=== PATIENT | male | born 1985 | race Caucasian/White ===

== ENCOUNTER 2017-08-28 18:25 | Inpatient (IN) | payer BC, OTHER ==
[2017-08-28] MEDS ORDERED: NS 0.9% 1000 ML* 2,000 ML IV ONE (19:55)
[2017-08-28] MEDS ORDERED: LORazepam INJ* 2 MG/ML 1 ML VIAL IV PUSH ONE (19:56)
--- NOTE | 2017-08-28 20:19 | RAD ---
INDICATION: Weakness. COMPARISON: There are no prior studies available for comparison. TECHNIQUE: A portable view of the chest was obtained. FINDINGS: Cardiac and mediastinal contours appear to be within normal limits. The lungs are hyperinflated and clear. No pleural effusion is seen. IMPRESSION: NO EVIDENCE FOR ACUTE DISEASE.
[2017-08-28 20:26] LABS: EGFR Non-African American 11.8 (>60)
[2017-08-28 21:34] LABS: ABS Basophils 0.1 10^3/ul (0-0.2); ABS Eosinophils 0.2 10^3/ul (0-0.6); ABS Lymphocytes 3.5 10^3/ul (1.0-4.8); ABS Monocytes 1.5 10^3/ul (0-0.8); ABS Neutrophils 11.9 10^3/ul (1.5-7.7); ABS Nucleated RBC 0 10^3/ul; Eosinophil % 1.4 % (0-6); Hematocrit 53 % (42-52); Hemoglobin 18.7 g/dl (14.0-18.0); Lymphocyte % 20.2 % (25-47); Mean Corpuscular HGB Conc 35 g/dl (31-36); Mean Corpuscular Hemoglobin 33 pg (27-31); Mean Corpuscular Volume 92 fL (80-94); Mean Platelet Volume 10.6 um3 (7.4-10.4); Nucleated Red Blood Cells % 0.1; Platelet Count 298 10^3/ul (150-450); Red Blood Count 5.75 10^6/ul (4.0-5.4); Red Cell Distribution Width 13 % (10.5-15); White Blood Count 17.3 10^3/ul (3.5-10.8)
--- NOTE | 2017-08-28 22:10 | RAD ---
INDICATION: Acute renal failure. COMPARISON: There are no prior studies available for comparison. TECHNIQUE: Multiple real-time images of the kidneys were obtained. FINDINGS: The kidneys are normal in size shape and echogenicity. The right kidney measured 9.4 x 6.0 x 5.4 cm and the left kidney measured 9.7 x 6.1 x 5.9 cm. No significant focal abnormality or hydronephrosis is seen. IMPRESSION: NEGATIVE EXAM.
[2017-08-28] MEDS ORDERED: Lidocaine 4% GEL* 10 GM TUBE TOPICAL ONE (23:13)
[2017-08-28] MEDS ORDERED: Al Hydrox/Mg Hydrox/Simet LIQ* 30 ML UDC PO PRN (23:15)
[2017-08-28] MEDS ORDERED: Senna TAB PO PRN (23:15)
[2017-08-28] MEDS ORDERED: Ondansetron INJ* 2 MG/ML VIAL IV PRN (23:15)
[2017-08-28] MEDS ORDERED: Docusate CAP* 100 MG PO PRN (23:15)
[2017-08-28] MEDS ORDERED: Omeprazole CAP* 20 MG PO PRN (23:18)
[2017-08-28] MEDS ORDERED: Lidocaine 2% JELLY* 6 ML JELLY TOPICAL ONE (23:32)
[2017-08-28] MEDS ORDERED: Mouth Piece, Nicotine* 1 EACH CARTRIDGE INH PRN ×2 (23:38)
[2017-08-28] MEDS ORDERED: Nicotine Inhaler* 10 MG AMP INH PRN (23:38)
--- NOTE | 2017-08-28 23:43 | ED ---
Mike Edmond Thomas, scribed for Mason Mcclure MD on 08/28/17 at 1938 . Dizziness - HPI Summary HPI Summary: The patient is a 31 year old male who is a poor historian. He comes in today complaining of dizziness that began today at 11:00. The dizziness is worsened by standing and sitting up. The patient reports that he has been falling due to the dizziness. The patient also complains of malaise, blurry vision, nausea, vomiting, tinnitus, chills, neck pain, bilateral arm numbness, and bilateral leg numbness. He complains of chronic back pain for the last 20 years that has worsened today. He is on Adderall. He is accompanied by his mother. - History Of Current Complaint Chief Complaint: EDDizziness Stated Complaint: HANDS AND FT NUMBNESS/ABD PAIN Time Seen by Provider: 08/28/17 19:35 Hx Obtained From: Patient Onset/Duration: Still Present Timing: Constant Severity Currently: Moderate Aggravating Factor(s): Other - Standing, sitting up Alleviating Factor(s): Nothing Associated Signs And Symptoms: Positive: Nausea, Vomiting, Tinnitus, Visual Changes - blurry vision, Chills - Allergies/Home Medications Allergies/Adverse Reactions: Allergies Allergy/AdvReac Type Severity Reaction Status Date / Time No Known Allergies Allergy Verified 02/18/16 13:38 Home Medications: Home Medications Amphetamine MIXED SALTS TAB* [Adderall TAB*] 5 mg PO DAILY 08/28/17 [History Confirmed 08/28/17] Aspirin TAB* [Aspirin 325 MG TAB*] 650 mg PO Q6H PRN 08/28/17 [History Confirmed 08/28/17] Omeprazole CAP* [Prilosec CAP* 20 MG] 20 mg PO DAILY PRN 08/28/17 [History Confirmed 08/28/17] PMH/Surg Hx/FS Hx/Imm Hx Endocrine/Hematology History: Denies: Hx Diabetes Cardiovascular History: Denies: Hx Hypertension, Hx Pacemaker/ICD Respiratory History: Denies: Hx Asthma History: Denies: Hx Renal Disease Musculoskeletal History: Denies: Hx Rheumatoid Arthritis, Hx Osteoporosis Sensory History: Denies: Hx Hearing Aid Psychiatric History: Reports: Hx Attention Deficit Hyperactivity Disorder Denies: Hx Panic Disorder Infectious Disease History: No Infectious Disease History: Denies: History Other Infectious Disease, Traveled Outside the [place] in Last 30 Days - Family History Known Family History: Positive: Hypertension - Social History Alcohol Use: None Substance Use Type: Reports: None Smoking Status (MU): Never Smoked Tobacco Amount Used/How Often: 5 CIGS A DAY Review of Systems Positive: Chills, Other - Malaise. Negative: Fever Positive: Blurred Vision Positive: Other - Neck pain Neurological: Other - Dizziness Positive: Numbness - bilateral leg, bilateral arm All Other Systems Reviewed And Are Negative: Yes Physical Exam - Summary Physical Exam Summary: VITAL SIGNS: Reviewed. GENERAL: Patient is a well-developed and nourished male who is lying comfortable in the stretcher. He is a poor historian. Patient is not in any acute respiratory distress. HEAD AND FACE: No signs of trauma. No ecchymosis, hematomas or skull depressions. No sinus tenderness. EYES: PERRLA, EOMI x 2, No injected conjunctiva, no nystagmus. EARS: Hearing grossly intact. Ear canals and tympanic membranes are within normal limits. MOUTH: Oropharynx within normal limits. NECK: Supple, trachea is midline, no adenopathy, no JVD, no carotid bruit, no c- spine tenderness, neck with full ROM. CHEST: Symmetric, no tenderness at palpation LUNGS: Clear to auscultation bilaterally. No wheezing or crackles. CVS: Tachycardia, regular rhythm, S1 and S2 present, no murmurs or gallops appreciated. ABDOMEN: Soft, non-tender. No signs of distention. No rebound no guarding, and no masses palpated. Bowel sounds are normal. BACK: Straight leg test is negative bilateral. There is no lumbosacral tenderness. EXTREMITIES: FROM in all major joints, no edema, no cyanosis or clubbing. NEURO: Alert and oriented x 3. No acute neurological deficits. Neurological exam is intact. Speech is normal and follows commands. SKIN: Dry and warm Triage Information Reviewed: Yes Vital Signs On Initial Exam: Initial Vitals Temp Pulse Resp BP Pulse Ox 96.6 F 131 20 144/77 95 08/28/17 18:27 08/28/17 18:27 08/28/17 18:27 08/28/17 18:27 08/28/17 18:27 Vital Signs Reviewed: Yes Diagnostics - Vital Signs Vital Signs Temp Pulse Resp BP Pulse Ox 08/28/17 18:27 96.6 F 131 20 144/77 95 - Laboratory Result Diagrams: 08/28/17 19:35 08/28/17 19:35 Lab Statement: Any lab studies that have been ordered have been reviewed, and results considered in the medical decision making process. - Radiology CXR Xray Interpretation: No Acute Changes - IMPRESSION: NO EVIDENCE FOR ACUTE DISEASE. Dr. Mcclure has reviewed this report. Radiology Interpretation Completed By: Radiologist - EKG 18:30 Cardiac Rate: Tachycardia EKG Rhythm: Sinus Tachycardia - at 127 BPM - Additional Comments Diagnostic Additional Comments: US RENAL COMPLETE Interpreted by radiologist. IMPRESSION: NEGATIVE EXAM. Dr. Mcclure has reviewed this report. Re-Evaluation - Re-Evaluation First Eval Re-Evaluation Time: 22:40 Comment: Results discussed. Patient will be admitted to Dr. Mena. Dizzy Course/Dx - Course Assessment/Plan: The patient is a 31 year old male who is a poor historian. He comes in today complaining of dizziness, falls, malaise, blurry vision, nausea, vomiting, tinnitus, chills, neck pain, bilateral arm numbness, chronic back pain , and bilateral leg numbness. In the ED course the patient was given IV fluids and Ativan. Bloodwork, urinalysis, and EKG were obtained. CXR is negative for acute disease. Renal ultrasound shows negative exam. I consulted with Dr. Gomez, nephrology, who made treatment recommendations. The patient will be admitted to Dr. Mena. - Diagnoses Provider Diagnoses: Acute renal failure - Provider Notifications Discussed Care Of Patient With: Osiel Gomez Time Discussed With Above Provider: 22:15 Instructed by Provider To: Other - Dr. Gomez, nephrology, recommends a bolus of 2000 cc of saline and 150 cc of saline per hour after that. He recommends no diuretics at this time. I spoke with Dr. Mena, hospitalist, at 22:40, and she will admit the patient. Discharge - Sign-Out/Discharge Documenting (check all that apply): Discharge - Patient is admitted to [facility] [place]. Mena - Discharge Plan Condition: Fair Disposition: ADMITTED TO [facility] The documentation as recorded by the Mike flannery Thomas accurately reflects the service I personally performed and the decisions made by me, Mason Mcclure MD.
[2017-08-28] MEDS: NS 0.9% 1000 ML* 1,000 ML IV SCH (23:52)
[2017-08-29] MEDS: Zolpidem TAB* 5 MG PO PRN (01:09)
--- NOTE | 2017-08-29 01:12 | HP ---
CC: Dr. Spivey in [place], [place] * HISTORY AND PHYSICAL: DATE OF ADMISSION: 08/28/17 TIME OF EVALUATION: 2300. PRIMARY CARE PHYSICIAN: Dr. Spivey in [place], [place]. CHIEF COMPLAINT: Dizziness, falls, and loss of consciousness. HISTORY OF PRESENT ILLNESS: This is a 31-year-old male who was recently diagnosed with hypertension and hyperlipidemia, who presented to the emergency room today with his mother for acute onset of feeling unwell. The patient states he was fine yesterday and today he was having upper back pain, worse in the upper region and lower. He has pain in his arms and his shoulders. He was feeling very dizzy and lightheaded. He states every time he tried to stand up he had fall down and he would have loss of consciousness. He was having episodes of nausea or vomiting. He did have an episode last evening and today. He has had significant amount of heartburns, feels like he cannot breath, and chest pain. He denies having any recent illness or viral illness or flu-like symptoms. In his opinion despite having the vomiting episode, he states he was fine yesterday with normal urine output, but states he has not urinated since yesterday and at that time, his urine output was fine. He states he has had normal bowel movements. He has had diffuse abdominal discomfort. He has numbness and tingling off and on in his hands and his legs, states it is worse when he sits up. He states he recently was seen by his primary care physician, Dr. Spivey and he did blood work, he told him he had high cholesterol and high blood pressure and they started him on hydrochlorothiazide about a month ago. He states he forgets to take it and has not been taking very often over the past month. He denies using very many NSAIDs at all. He states he usually sticks with Tylenol. Otherwise, review of systems is negative. In the emergency room, the patient had labs and imaging. He was given 2 L of normal saline and was referred to the hospitalist service for further evaluation. PAST MEDICAL HISTORY: 1. ADHD. 2. Hypertension. 3. Hyperlipidemia. MEDICATIONS: 1. Adderall 5 mg p.o. daily. 2. Omeprazole 20 mg daily. 3. He is maintained on hydrochlorothiazide, but the patient has not been taking very often this past month. ALLERGIES: No known drug allergies. FAMILY HISTORY: Maternal grandfather from renal failure that he does have a history of renal impairment in the family and hypertension. His mother has hypertension. His father is healthy. SOCIAL HISTORY: The patient lives alone. He is currently unemployed. 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 He smokes about 5 cigarettes a day, rare alcohol use, and occasional marijuana use. His healthcare proxy is his mother, Jazmín Tariq. Code status is full code. REVIEW OF SYSTEMS: As mentioned in the HPI, otherwise negative. He denies any changes in his weight. PHYSICAL EXAMINATION GENERAL: Some discomfort due to the Sullivan placement. VITAL SIGNS: Temp 98.6, pulse rate 106, respiratory rate 20, oxygen saturation 100% on room air, and blood pressure 87/44. HEENT: Head: Normocephalic. Pupils equal and reactive, anicteric. Oropharynx : Mucous membranes are moist. No erythema or exudate. NECK: Supple. No lymphadenopathy. RESPIRATORY: Diminished breath sounds. No wheezing, rhonchi, or rales. CARDIAC: Tachycardia. Soft systolic murmur heard throughout. ABDOMEN: Positive bowel sounds, soft, some mild tenderness in the suprapubic region related to the Sullivan catheter. No rebound or guarding. EXTREMITIES: No clubbing, cyanosis, or edema. +2 DP. NEUROLOGIC: Alert and oriented x3. No gross focal neurological deficits. No sensation deficits. Negative pronator drift. LABORATORY DATA: White count 17.3, hemoglobin 18.7, hematocrit 53, platelets 298. Sodium 137, potassium 3.5, chloride 85, bicarb 28, anion gap of 24, BUN 35 , creatinine 5.72, glucose 126, lactic acid 2.3, calcium 11.2. Total bili 0.8, AST 24, ALT 21, total CK 363. CRP is 26. TSH is 1.76. Toxicology, less salicylates and alcohol negative. RADIOGRAPHIC DATA: Chest x-ray, no evidence for acute disease. Renal ultrasound, negative exam. EKG shows sinus tachycardia with minimal ST elevation in the inferior leads. ASSESSMENT AND PLAN: This is a 31-year-old male with a past medical history of hypertension, hyperlipidemia, and attention deficit hyperactivity disorder, who presents to the emergency room with a diffuse constellation of symptoms, found to be in acute kidney injury. 1. Acute kidney injury. Assessment: It is unclear the etiology behind his acute kidney injury per patient who appears to be a poor historian. This was a rather acute onset. He was started on hydrochlorothiazide a month ago, but it does not seem that he was taking it very often. He did have blood work recently. We will obtain those blood work to compare to see if he has underlying chronic kidney disease. He is currently anuric. He received 2 L and a Sullivan has been placed and no urine output thus far. Dr. Gomez was called, he recommended 2 L and continue normal saline to followup in the morning. Plan: We will continue 150 cc an hour, renally dose his medications. If he does urinate, we will order a UA and FENa. We will check a mag, phos, and coags, and troponin as well and followup on his CK. 2. Chronic medical problems. Attention deficit hyperactivity disorder. Continue his Adderall. 3. Gastroesophageal reflux disease. Continue omeprazole. 4. Hypertension. The patient is currently hypotensive at this time. 5. Hyperlipidemia. We will check a lipid panel in the morning. 6. FEN. Place the patient on a renal diet. 7. DVT prophylaxis: The patient scores low risk. We will place him on heparin subcu t.i.d. as I suspect he is not going to be very mobile with a Sullivan catheter in place due to the discomfort. We will order him some lidocaine gel to the Sullivan catheter area. 8. Code status: Full code. PATIENT TIME: Greater than 60 minutes spent doing the history and physical, more than half the time was spent in direct patient contact. [id number]/[facility] #: [id number] ASHLEY
[2017-08-29] MEDS ORDERED: Aspirin EC TAB* 81 MG TAB.EC PO ONE (01:41)
[2017-08-29] MEDS ORDERED: Heparin DRIP 25,000 UNITS(*) 25,000 UNITS/500 ML BAG IV SCH (01:45)
--- NOTE | 2017-08-29 01:48 | PN ---
Progress Note - Progress Note Date of Service: 08/29/17 Note: Paged for positive bump in troponin. No Chest pain. Will repeat EKG. Concern for PE in setting of tachycardia and hypotension. Will start heparin empirically as his renal function will not allow for CTA of chest. Will order V /Q scan, echo and doppler of lower ext for morning.
[2017-08-29] MEDS ORDERED: Heparin VIAL(*) 5000 UNITS/ML VIAL (FIVE THOUSAND) IV SCH (02:00)
[2017-08-29 02:23] LABS: Hematocrit 42 % (42-52); Hemoglobin 14.3 g/dl (14.0-18.0); Mean Corpuscular HGB Conc 34 g/dl (31-36); Mean Corpuscular Hemoglobin 32 pg (27-31); Mean Corpuscular Volume 93 fL (80-94); Mean Platelet Volume 9.8 um3 (7.4-10.4); Platelet Count 214 10^3/ul (150-450); Red Blood Count 4.51 10^6/ul (4.0-5.4); Red Cell Distribution Width 13 % (10.5-15); White Blood Count 18.2 10^3/ul (3.5-10.8)
[2017-08-29 02:25] LABS: ABS Basophils 0.2 10^3/ul (0-0.2); ABS Eosinophils 0.2 10^3/ul (0-0.6); ABS Lymphocytes 3.3 10^3/ul (1.0-4.8); ABS Monocytes 1.6 10^3/ul (0-0.8); ABS Neutrophils 12.9 10^3/ul (1.5-7.7); ABS Nucleated RBC 0 10^3/ul; Eosinophil % 1.2 % (0-6); Nucleated Red Blood Cells % 0
[2017-08-29 02:40] LABS: EGFR Non-African American 10.6 (>60)
[2017-08-29] MEDS ORDERED: NS 0.9% 1000 ML* 1,000 ML IV ONE (04:30)
[2017-08-29] MEDS ORDERED: Vancomycin(*) 1,000 MG in NS 0.9% 250 ML* 250 ML IVPB ONE (06:04)
[2017-08-29] MEDS ORDERED: Cefepime 1 GM in Dextrose(*) 1 GM/50 ML BAG IV STA (06:21)
--- NOTE | 2017-08-29 06:27 | PN ---
Progress Note - Progress Note Date of Service: 08/29/17 Note: Paged for systolic BP in 60's. Patient transfered to ICU and given 3 L of NS. Remains anuric. On encounter - patient denies any complaints. No back pain, CP or SOB. Denies abdominal pain. States he never injected drugs only snorted them or smoked them in 2010. Has been clean since. Patient on arrival to ICU spiked to 101. Blood cultures obtained, Vanco x 1 and Cefepime started. Flu swab also ordered. Spoke with Dr. Rivas who recommend neosynephrine to keep his SBP's in 90-100's. Awaiting on morning labs including CK.
[2017-08-29 07:12] LABS: ABS Basophils 0.1 10^3/ul (0-0.2); ABS Eosinophils 0.3 10^3/ul (0-0.6); ABS Monocytes 1.5 10^3/ul (0-0.8); ABS Neutrophils 11.4 10^3/ul (1.5-7.7); ABS Nucleated RBC 0 10^3/ul; Eosinophil % 2.1 % (0-6); Hematocrit 36 % (42-52); Hemoglobin 12.4 g/dl (14.0-18.0); Lymphocyte % 18.3 % (25-47); Mean Corpuscular HGB Conc 34 g/dl (31-36); Mean Corpuscular Hemoglobin 32 pg (27-31); Mean Corpuscular Volume 93 fL (80-94); Mean Platelet Volume 10.6 um3 (7.4-10.4); Nucleated Red Blood Cells % 0; Platelet Count 183 10^3/ul (150-450); Red Blood Count 3.92 10^6/ul (4.0-5.4); Red Cell Distribution Width 13 % (10.5-15); White Blood Count 16.2 10^3/ul (3.5-10.8)
--- NOTE | 2017-08-29 07:25 | PN ---
Hospitalist Progress Note Date of Service: 08/29/17 HOSPITALIST ADDENDUM Called by RN for troponin 0.47. Patient remains CP free. With his clinical picture of severe sepsis of unclear source, will check serial troponins until peak and echocardiogram for possible myocarditis.
--- NOTE | 2017-08-29 07:51 | RAD ---
HISTORY: Syncope COMPARISONS: None TECHNIQUE: Multiple contiguous axial CT scans were obtained of the head without intravenous contrast. FINDINGS: HEMORRHAGE/INFARCT: There is no hemorrhage or acute infarct. MASSES/SHIFT: There is no mass or shift. EXTRA-AXIAL SPACES: There are no extra-axial fluid collections. SULCI AND VENTRICLES: The sulci and ventricles are normal in size and position for the patient's stated age. CEREBRUM: There are no focal parenchymal abnormalities. BRAINSTEM: There are no focal parenchymal abnormalities. CEREBELLUM: There are no focal parenchymal abnormalities. VESSELS: The vessels are grossly normal. PARANASAL SINUSES: The paranasal sinuses are clear. ORBITS: The orbits are unremarkable. BONES AND SOFT TISSUE: No bone or soft tissue abnormalities are noted. OTHER: None IMPRESSION: NO ACUTE INTRACRANIAL PATHOLOGY.
[2017-08-29] MEDS: Aspirin EC TAB* 81 MG TAB.EC PO SCH (08:28)
[2017-08-29] MEDS: Amphetamine MIXED SALT TAB* 10 MG TAB PO SCH (08:46)
[2017-08-29] MEDS: Phenylephrine INJ* 50 MG in NS 0.9% 250 ML* 245 ML IV SCH (09:00)
[2017-08-29] MEDS: NS 0.9% 1000 ML* 1,000 ML IV SCH ×2 (09:33→16:15)
[2017-08-29] MEDS ORDERED: Vancomycin per Pharmacy* NOTE FOLLOW UP SCH (10:00)
[2017-08-29 10:30] LABS: Urine Appearance Cloudy; Urine Blood 3+ (Negative); Urine Color Yellow; Urine Ketones Trace (Negative); Urine Protein 2+(100 mg/dL) (Negative); Urine Urobilinogen Negative (Negative)
--- NOTE | 2017-08-29 10:31 | CONSULT ---
Consult Consult: Consultation Note Critical Care Requesting Physician: Dr Estela Mena Reason for consult: hypotension Limitations in history/physical: none Date of consult: 08/29/2017 HPI: 31y M with some hyperactivity disorder (ADHD?), Hypertension; comes to ER for dizziness, falls secondary to dizziness. Also associated blurry vision, malaise, nausea, vomiting, chills+, bilateral arm numbness and leg numbness. Chronic back pain for 20yrs. States no fever/chills. Vomiting x2-3x yesterday. No sick contacts. No abd pain/diarrhea. States he doesnt take HCTZ frequently, last time was last week once. Comes to ER 08/28, was tachycardic 130s, temp 96.6, sat 95% RA, wbc 17, in AYO Cr 5.7. Started on IVF. Overnight was hypotensive to 70s, given fluid bolus without much response, upgraded to ICU. Here started on enrrique this morning for low MAP and low Diastolic BP. Sullivan in place, not much urine overnight. On NS 150cc/hour. Started on IV heparin overnight for rising troponins. He denies CP/ sob. This morning in ICU spiked temp 101.1 ED/floor Course: as above ROS: negative except for pertinent positives mentioned above. PMHx: ADHD, Hypertension PSHx: none Family History: Renal failure in maternal grandfather. Hypertension in mother. 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 Allergies: NKDA Home Medications: Amphetamine MIXED SALTS TAB* [Adderall TAB*] 5 mg PO DAILY 08/28/17 [History Confirmed 08/28/17] Aspirin TAB* [Aspirin 325 MG TAB*] 650 mg PO Q6H PRN 08/28/17 [History Confirmed 08/28/17] Omeprazole CAP* [Prilosec CAP* 20 MG] 20 mg PO DAILY PRN 08/28/17 [History Confirmed 08/28/17] Tele: NSR Vitals: tmax 101 Vital Signs Temp 98.8 F 08/29/17 07:54 Pulse 88 08/29/17 09:45 Resp 12 08/29/17 09:45 BP 119/37 08/29/17 09:45 Pulse Ox 95 08/29/17 09:45 Intake & Output 08/28/17 08/29/17 08/29/17 18:59 06:59 18:59 Intake Total 1999 Output Total 0 260 Balance 1999 - Weight 165 lb 154 lb 3.2 oz Intake: IV Fluids 1999 Output: Sullivan 0 260 O2/Vent: RA Infusions: NS 150cc/hour, Heparin IV, Enrrique 10mcg/min Current Medications: Acetaminophen (Tylenol Tab*) 650 mg PO Q4H PRN PRN Reason: FEVER/PAIN Al Hydrox/Mg Hydrox/Simethicone (Maalox Plus*) 30 ml PO Q6H PRN PRN Reason: INDIGESTION Last Admin: 08/29/17 01:05 Dose: 30 ml Amphetamine/Dextroamphetamine (Adderall Tab*) 5 mg PO DAILY [facility] Last Admin: 08/29/17 08:46 Dose: Not Given Aspirin (Aspirin Ec Tab*) 81 mg PO DAILY [facility] Last Admin: 08/29/17 08:28 Dose: 81 mg Device (Nicotine Mouth Piece*) 1 each INH .USE WITH NICOTROL PRN PRN Reason: CRAVING Docusate Sodium (Colace Cap*) 100 mg PO BID PRN PRN Reason: CONSTIPATION Heparin Sodium (Porcine) (Heparin Vial(*)) 0 units IV .PER PROTOCOL [facility] Last Admin: 08/29/17 03:37 Dose: 5,650 units Sodium Chloride (Ns 0.9% 1000 Ml*) 1,000 mls @ 150 mls/hr IV PER RATE [facility] Last Admin: 08/29/17 09:33 Dose: 150 mls/hr Heparin Sodium/Dextrose (Heparin Drip 25,000 Units(*)) 25,000 units in 500 mls @ 0 mls/hr IV PER RATE [facility]; Per Protocol PRN Reason: Protocol Last Admin: 08/29/17 03:34 Dose: 27 mls/hr Cefepime HCl 1 gm/ Dextrose 50 mls @ 100 mls/hr IVPB Q24H MYRNA Phenylephrine HCl 50 mg/ (Sodium Chloride) 250 mls @ 15 mls/hr IV Q16H MYRNA PRN Reason: 50 MCG/MIN Last Admin: 08/29/17 09:00 Dose: 3 mls/hr Nicotine (Nicotine Inhaler*) 10 mg INH Q2H PRN PRN Reason: CRAVING Omeprazole (Prilosec Cap*) 20 mg PO DAILY PRN PRN Reason: NAUSEA/VOMITING Last Admin: 08/29/17 01:05 Dose: 20 mg Ondansetron HCl (Zofran Inj*) 4 mg IV Q4H PRN PRN Reason: NAUSEA/VOMITING Pharmacy Consult (Vancomycin Per Pharmacy*) 1 note FOLLOW UP .VANC PER PHARMACY MYRNA Senna (Senokot Tab*) 1 tab PO BID PRN PRN Reason: CONSTIPATION Zolpidem Tartrate (Ambien Tab*) 5 mg PO BEDTIME PRN PRN Reason: INSOMNIA Last Admin: 08/29/17 01:09 Dose: 5 mg Physical Exam: General: awake, alert, no distress, no diaphoresis Head: normocephalic, atraumatic HEENT: no pallor, no icterus, dry mucous membranes Neck: soft, supple, no jvd, no stridor CVS: normal rate, regular, no murmur Resp: bilateral air entry, no rhales, no wheeze, no rhonchi, no acc muscle use Abdomen: soft, nontender, nondistended, bowel sounds present Ext: pulses+, warm, no edema Skin: intact, no breakdown, no dryness Neuro: awake, alert, orientedx3, moving all extremities, no gross focal deficit Labs: Laboratory Results - last 24 hr 08/28/17 08/28/17 08/28/17 19:35 19:35 19:35 WBC 17.3 H RBC 5.75 H Hgb 18.7 H Hct 53 H MCV 92 MCH 33 H MCHC 35 RDW 13 Plt Count 298 MPV 10.6 H Neut % (Auto) 68.9 Lymph % (Auto) 20.2 L Dewey % (Auto) 8.8 H Eos % (Auto) 1.4 Baso % (Auto) 0.7 Absolute Neuts (auto) 11.9 H Absolute Lymphs (auto) 3.5 Absolute Monos (auto) 1.5 H Absolute Eos (auto) 0.2 Absolute Basos (auto) 0.1 Absolute Nucleated RBC 0 Nucleated RBC % 0.1 INR (Anticoag Therapy) APTT D-Dimer, Quantitative Sodium 137 L Potassium 3.5 Chloride 85 L Carbon Dioxide 28 Anion Gap 24 H BUN 35 H Creatinine 5.72 H Est GFR ( Amer) 15.2 Est GFR (Non-Af Amer) 11.8 BUN/Creatinine Ratio 6.1 L Glucose 126 H Lactic Acid 2.3 H* Calcium 11.2 H Phosphorus 5.0 Magnesium 2.6 Total Bilirubin 0.80 AST 24 ALT 21 Alkaline Phosphatase 66 Total Creatine Kinase 363 H Troponin I 0.04 H* C-Reactive Protein 26.78 H Total Protein 9.4 H Albumin 5.7 H Globulin 3.7 Albumin/Globulin Ratio 1.5 Triglycerides Cholesterol LDL Cholesterol HDL Cholesterol TSH 1.76 Urine Color Urine Appearance Urine pH Ur Specific Flaxton Urine Protein Urine Ketones Urine Blood Urine Nitrate Urine Bilirubin Urine Urobilinogen Ur Leukocyte Esterase Urine WBC (Auto) Urine RBC (Auto) Urine Bacteria Hyaline Casts Urine Glucose Salicylates < 2.50 Serum Alcohol < 10 Influenza A (Rapid) Influenza B (Rapid) 08/29/17 08/29/17 08/29/17 00:00 00:00 02:15 WBC 18.2 H RBC 4.51 Hgb 14.3 Hct 42 MCV 93 MCH 32 H MCHC 34 RDW 13 Plt Count 214 MPV 9.8 Neut % (Auto) 71.2 Lymph % (Auto) 18.0 L Dewey % (Auto) 8.6 H Eos % (Auto) 1.2 Baso % (Auto) 1.0 Absolute Neuts (auto) 12.9 H Absolute Lymphs (auto) 3.3 Absolute Monos (auto) 1.6 H Absolute Eos (auto) 0.2 Absolute Basos (auto) 0.2 Absolute Nucleated RBC 0 Nucleated RBC % 0 INR (Anticoag Therapy) 1.00 APTT 26.8 D-Dimer, Quantitative 674 H Sodium Potassium Chloride Carbon Dioxide Anion Gap BUN Creatinine Est GFR ( Amer) Est GFR (Non-Af Amer) BUN/Creatinine Ratio Glucose Lactic Acid Calcium Phosphorus Magnesium Total Bilirubin AST ALT Alkaline Phosphatase Total Creatine Kinase Troponin I 0.15 H* C-Reactive Protein Total Protein Albumin Globulin Albumin/Globulin Ratio Triglycerides Cholesterol LDL Cholesterol HDL Cholesterol TSH Urine Color Urine Appearance Urine pH Ur Specific Flaxton Urine Protein Urine Ketones Urine Blood Urine Nitrate Urine Bilirubin Urine Urobilinogen Ur Leukocyte Esterase Urine WBC (Auto) Urine RBC (Auto) Urine Bacteria Hyaline Casts Urine Glucose Salicylates Serum Alcohol Influenza A (Rapid) Influenza B (Rapid) 04/18/18 04/18/18 04/18/18 02:15 02:15 05:45 WBC 16.2 H RBC 3.92 L Hgb 12.4 L Hct 36 L MCV 93 MCH 32 H MCHC 34 RDW 13 Plt Count 183 MPV 10.6 H Neut % (Auto) 70.1 Lymph % (Auto) 18.3 L Dewey % (Auto) 9.2 H Eos % (Auto) 2.1 Baso % (Auto) 0.3 Absolute Neuts (auto) 11.4 H Absolute Lymphs (auto) 3.0 Absolute Monos (auto) 1.5 H Absolute Eos (auto) 0.3 Absolute Basos (auto) 0.1 Absolute Nucleated RBC 0 Nucleated RBC % 0 INR (Anticoag Therapy) APTT 28.5 D-Dimer, Quantitative Sodium Potassium Chloride Carbon Dioxide Anion Gap BUN 40 H Creatinine 6.26 H Est GFR ( Amer) 13.7 Est GFR (Non-Af Amer) 10.6 BUN/Creatinine Ratio Glucose Lactic Acid Calcium Phosphorus Magnesium Total Bilirubin AST ALT Alkaline Phosphatase Total Creatine Kinase 258 H Troponin I 0.29 H* C-Reactive Protein Total Protein Albumin Globulin Albumin/Globulin Ratio Triglycerides Cholesterol LDL Cholesterol HDL Cholesterol TSH Urine Color Urine Appearance Urine pH Ur Specific [place]xton Urine Protein Urine Ketones Urine Blood Urine Nitrate Urine Bilirubin Urine Urobilinogen Ur Leukocyte Esterase Urine WBC (Auto) Urine RBC (Auto) Urine Bacteria Hyaline Casts Urine Glucose Salicylates Serum Alcohol Influenza A (Rapid) Influenza B (Rapid) 08/29/17 08/29/17 08/29/17 05:45 05:45 06:21 WBC RBC Hgb Hct MCV MCH MCHC RDW Plt Count MPV Neut % (Auto) Lymph % (Auto) Dewey % (Auto) Eos % (Auto) Baso % (Auto) Absolute Neuts (auto) Absolute Lymphs (auto) Absolute Monos (auto) Absolute Eos (auto) Absolute Basos (auto) Absolute Nucleated RBC Nucleated RBC % INR (Anticoag Therapy) APTT 184.6 H* D-Dimer, Quantitative Sodium 135 L Potassium 3.2 L Chloride 96 L Carbon Dioxide 25 Anion Gap 14 H BUN 42 H Creatinine 6.62 H Est GFR ( Amer) 12.8 Est GFR (Non-Af Amer) 10.0 BUN/Creatinine Ratio 6.3 L Glucose 120 H Lactic Acid 0.6 Calcium 7.8 L Phosphorus Magnesium Total Bilirubin AST ALT Alkaline Phosphatase Total Creatine Kinase Troponin I 0.47 H* C-Reactive Protein Total Protein Albumin Globulin Albumin/Globulin Ratio Triglycerides 48 Cholesterol 124 LDL Cholesterol 81 HDL Cholesterol 33.7 TSH Urine Color Urine Appearance Urine pH Ur Specific [place] Urine Protein Urine Ketones Urine Blood Urine Nitrate Urine Bilirubin Urine Urobilinogen Ur Leukocyte Esterase Urine WBC (Auto) Urine RBC (Auto) Urine Bacteria Hyaline Casts Urine Glucose Salicylates Serum Alcohol Influenza A (Rapid) Influenza B (Rapid) 08/29/17 08/29/17 08/29/17 06:45 07:45 10:00 WBC RBC Hgb Hct MCV MCH MCHC RDW Plt Count MPV Neut % (Auto) Lymph % (Auto) Dewey % (Auto) Eos % (Auto) Baso % (Auto) Absolute Neuts (auto) Absolute Lymphs (auto) Absolute Monos (auto) Absolute Eos (auto) Absolute Basos (auto) Absolute Nucleated RBC Nucleated RBC % INR (Anticoag Therapy) APTT 148.6 H* D-Dimer, Quantitative Sodium Potassium Chloride Carbon Dioxide Anion Gap BUN Creatinine Est GFR ( Amer) Est GFR (Non-Af Amer) BUN/Creatinine Ratio Glucose Lactic Acid Calcium Phosphorus Magnesium Total Bilirubin AST ALT Alkaline Phosphatase Total Creatine Kinase Troponin I C-Reactive Protein Total Protein Albumin Globulin Albumin/Globulin Ratio Triglycerides Cholesterol LDL Cholesterol HDL Cholesterol TSH Urine Color Yellow Urine Appearance Cloudy Urine pH 5.0 Ur Specific Flaxton 1.010 Urine Protein 2+(100 mg/dl) A Urine Ketones Trace A Urine Blood 3+ A Urine Nitrate Negative Urine Bilirubin Negative Urine Urobilinogen Negative Ur Leukocyte Esterase Trace A Urine WBC (Auto) 2+(11-20/hpf) A Urine RBC (Auto) 3+(>10/hpf) A Urine Bacteria Absent Hyaline Casts Present A Urine Glucose 1+(50 mg/dl) A Salicylates Serum Alcohol Influenza A (Rapid) Negative Influenza B (Rapid) Negative Imaging: CT brain 08/28 - no acute pathology CXR 08/29 - no acute process EKG 08/29 - nsr, some lateral t wave flattening mild, good R progression Assessment: 31y M with some hyperactivity disorder (ADHD?), Hypertension; comes to ER for dizziness, falls secondary to dizziness. Also associated blurry vision , malaise, nausea, vomiting, chills+, bilateral arm numbness and leg numbness. Chronic back pain for 20yrs. States no fever/chills. Vomiting x2-3x yesterday. No sick contacts. No abd pain/diarrhea. States he doesnt take HCTZ frequently, last time was last week once. Found to have AYO with elevated WBC, then developed hypotension, poor urine output, fever, upgraded to ICU. -AYO, suspect pre-renal hypovolemia +/- septic ATN? -Hyponatremia/hypochloremia -Leukocytosis, r/o sepsis -Shock, mixed hypovolemic +/- component of sepsis Plan: Neuro- stable CVS- hypotension, low DBP. hypovolemia +/- sepsis. Started on low dose peripheral enrrique, responding well. cont NS infsuion 150cc/hour. Urine output now picking up. IV abx cefepime/vanco x1 dose, blood/urine cx sent. ECHO pending. EKG without no sig changes. Trop elevation could be from poor renal clearance, on IV heparin, no chest pain. May consider d/c'ing heparin, low suspicion of ACS. Resp- RA, no distress ID- febrile, wbc 23. Unclear source, urine is abnormal, cxr clear. Pending cultures. Hypotension+. Empiric IV abx cefepime/vanco (day#1). No noted travels of sort. check influenza panel. GI- nause/vom improved, keep zofran prn. start regular diet for now, encourage PO intake. check fobt. Renal- AYO, was oliguric/anuric, but now starting to picking tech urine output. hyponatremia and hypochloremia, BUN not very elevated though. clinically not overloaded, but appears to be hypovolemic. No furhter diuretics. Cont NS 150cc/ hour. No acidosis noted. K 3.2, replete with 20meq PO x1 now. recheck in 6 hours. Sullivan+. Heme- hg drop noted but no bleeding, may have been hemoconcentrated labs prior? repeat cbc in evening. plt okay. on asa/heparin IV. check fobt. Endo- fingersticks as needed Musculsk- bedrest, oob to chair as tolerated. Wounds- none Nutrition- PO regular diet DVT prophylaxis: SCDs, Heparin IV GI prophylaxis: PPI po Central Line: no Arterial Line: no Sullivan Cathetor: yes Disposition: ICU Code Status: full code Total Critical Care time is 40 minutes, excluding procedures/teaching Stewart Rivas MD [employer] (Electronically Signed)
[2017-08-29] MEDS ORDERED: Potassium Chloride LIQUID* 20 MEQ PACKET PO ONE (10:46)
--- NOTE | 2017-08-29 12:50 | CONS ---
NEPHROLOGY CONSULTATION: DATE OF CONSULT: 08/29/17 HISTORY OF PRESENT ILLNESS: Mr. Tariq is a 31-year-old gentleman with approximately 1 day history of feverishness and chills, orthostatic dizziness. He had had some nausea and vomiting. He had had some numbness to his arms and his legs, a generalized malaise. He has been having anorexia for a few days prior to the onset of this particular illness. PAST MEDICAL HISTORY: His previous medical history is significant for ADHD and recently diagnosed hypertension. He has a history of hyperlipidemia. MEDICATIONS: Included: 1. Hydrochlorothiazide. 2. Adderall 5 mg daily. 3. Omeprazole 20 mg daily. ALLERGIES: No known medical allergies. FAMILY HISTORY: Significant in his maternal grandfather who had renal failure. 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 He has old history of intravenous drug abuse. REVIEW OF SYSTEMS: No visual disturbances. No hearing problems. No swallowing difficulties. No chest pain. No shortness of breath. No edema. PHYSICAL EXAM: On physical examination, he is a well-developed, well-nourished white gentleman. He appears to be quite comfortable. He states he feels much better than when he presented yesterday. He is afebrile. His blood pressure is 108/49 with a pulse of 79. Of significance, his blood pressure was in the 80s on presentation. Originally, he was aneuric when his catheter went in; however, his urine output has begun to sweet pickle maker. HEENT: He is normocephalic. He had no skin tenting. His mucous membranes are moist. He was anicteric. There was no jugular venous distention. His chest was clear. The heart revealed a regular rhythm without murmurs. Bowel sounds were positive. There was no edema. No skin rashes. DIAGNOSTIC STUDIES/LAB DATA: A review of his laboratory studies reveals a white count of 16.2, which is down from a maximum of 18.2; hemoglobin of 12.4, down from a maximum of 18.7; platelet count of 183,000. He had a positive D- dimer of 674. Sodium is 135, potassium 3.2, total CO2 of 25, chloride 96, BUN 42 , creatinine 6.62 and that is up from 5.72 on presentation, glucose of 120, calcium 7.8 with an albumin of 5.7 on presentation. Urinalysis reveals 2+ protein, 3+ blood, 2+ wbc's, 3+ rbc's, hyaline casts were noted. A renal ultrasound revealed that his kidneys were abnormal size and there was no evidence of obstruction. IMPRESSION: Acute renal failure, a great deal of the evidence suggests a severe prerenal state. However ordinarily, one would expect a BUN-to- creatinine ratio to be markedly reversed from what it is now. It may be possible that he was protein starved for a few days prior to admission and as a result, his BUN is not up further. There is also the possibility that there could be some rhabdomyolysis going on artifactually elevating his creatinine; however, his CK was not really all that elevated. At the present time, I think he should just continue one with reasonable hydration. I do not see that there is an indication to proceed on with dialysis at the present time. He may need to have some replacement of his potassium, as his potassium has fallen a little into the abnormal range. I have discussed the case with Dr. Rivas. [id number]/[facility] #: [id number] [facility] CENTERDomitila
[2017-08-29 14:51] LABS: Hematocrit 38 % (42-52); Hemoglobin 12.9 g/dl (14.0-18.0)
[2017-08-29 15:08] LABS: EGFR Non-African American 12.1 (>60)
[2017-08-29] MEDS ORDERED: LORazepam TAB(*) 0.5 MG PO ONE (19:53)
[2017-08-29] MEDS ORDERED: LORazepam TAB(*) 0.5 MG ONE (20:08)
[2017-08-30] MEDS: Acetaminophen TAB* 325 MG PO PRN ×2 (00:57→08:38)
[2017-08-30] MEDS: Zolpidem TAB* 5 MG PO PRN ×2 (00:57→22:45)
[2017-08-30] MEDS ORDERED: Vancomycin Random Level* NOTE FOLLOW UP ONE (06:00)
[2017-08-30 07:49] LABS: Hematocrit 35 % (42-52); Hemoglobin 11.9 g/dl (14.0-18.0); Mean Corpuscular HGB Conc 35 g/dl (31-36); Mean Corpuscular Hemoglobin 32 pg (27-31); Mean Corpuscular Volume 94 fL (80-94); Mean Platelet Volume 10.1 um3 (7.4-10.4); Platelet Count 166 10^3/ul (150-450); Red Blood Count 3.69 10^6/ul (4.0-5.4); Red Cell Distribution Width 13 % (10.5-15)
[2017-08-30] MEDS ORDERED: Cefepime(*) 1 GM in D5W 50 ML BAG* 50 ML IVPB SCH (08:00)
[2017-08-30 08:04] LABS: EGFR Non-African American 36.5 (>60)
[2017-08-30] MEDS: Aspirin EC TAB* 81 MG TAB.EC PO SCH (08:38)
[2017-08-30] MEDS: Amphetamine MIXED SALT TAB* 10 MG TAB PO SCH (08:39)
[2017-08-30] MEDS: Phenylephrine INJ* 50 MG in NS 0.9% 250 ML* 245 ML IV SCH ×2 (08:39→14:44)
[2017-08-30] MEDS ORDERED: ALPRAZolam TAB* 0.25 MG PO ONE ×2 (09:03→18:51)
[2017-08-30] MEDS ORDERED: ALPRAZolam TAB* 0.25 MG ONE (09:05)
--- NOTE | 2017-08-30 09:59 | PN ---
Progress Note - Progress Note Date of Service: 08/30/17 Note: Progress Note Critical Care 24 hour events: -afebrile overnight; remains on enrrique 20 but MAPs 80s -ding discomtofrt -making great urine overnigth ~4L -no fevers, mild chills+. no n/v/abd pain/cp/sob -eating well Tele: NSR Vitals: Vital Signs Temp 98.7 F 08/30/17 08:21 Pulse 71 08/30/17 09:00 Resp 13 08/30/17 09:07 BP 126/77 08/30/17 09:00 Pulse Ox 95 08/30/17 09:00 Intake & Output 08/29/17 08/30/17 08/30/17 18:59 06:59 18:59 Intake Total 1673 3336 Output Total 1485 2435 200 Balance 188 901 -200 Weight 150 lb 5.684 oz Intake: IV Fluids 975 2459 ABX - VANCOMYCIN 1200 NS (0.9%) 975 1259 IVPB 275 ABX - VANCOMYCIN 275 Medicated IV 123 277 CC - Phenylephrine/ 15 277 Neosynephrine Heparin 108 Oral 300 600 Output: Ding 1485 2435 200 O2/Vent: RA Infusions: NS 150cc/hour, Enrrique 20mcg/min Current Medications: Acetaminophen (Tylenol Tab*) 650 mg PO Q4H PRN PRN Reason: FEVER/PAIN Last Admin: 08/30/17 08:38 Dose: 650 mg Al Hydrox/Mg Hydrox/Simethicone (Maalox Plus*) 30 ml PO Q6H PRN PRN Reason: INDIGESTION Last Admin: 08/29/17 01:05 Dose: 30 ml Amphetamine/Dextroamphetamine (Adderall Tab*) 5 mg PO DAILY [facility] Last Admin: 08/30/17 08:39 Dose: Not Given Aspirin (Aspirin Ec Tab*) 81 mg PO DAILY [facility] Last Admin: 08/30/17 08:38 Dose: 81 mg Device (Nicotine Mouth Piece*) 1 each INH .USE WITH NICOTROL PRN PRN Reason: CRAVING Docusate Sodium (Colace Cap*) 100 mg PO BID PRN PRN Reason: CONSTIPATION Sodium Chloride (Ns 0.9% 1000 Ml*) 1,000 mls @ 150 mls/hr IV PER RATE [facility] Last Admin: 08/29/17 16:15 Dose: 150 mls/hr Cefepime HCl 1 gm/ Dextrose 50 mls @ 100 mls/hr IVPB Q24H [facility] Last Admin: 08/30/17 08:35 Dose: 100 mls/hr Phenylephrine HCl 50 mg/ (Sodium Chloride) 250 mls @ 15 mls/hr IV Q16H MYRNA PRN Reason: 50 MCG/MIN Last Admin: 08/30/17 08:39 Dose: Not Given Nicotine (Nicotine Inhaler*) 10 mg INH Q2H PRN PRN Reason: CRAVING Omeprazole (Prilosec Cap*) 20 mg PO DAILY PRN PRN Reason: NAUSEA/VOMITING Last Admin: 08/29/17 01:05 Dose: 20 mg Ondansetron HCl (Zofran Inj*) 4 mg IV Q4H PRN PRN Reason: NAUSEA/VOMITING Pharmacy Consult (Vancomycin Per Pharmacy*) 1 note FOLLOW UP .VANC PER PHARMACY [facility] Senna (Senokot Tab*) 1 tab PO BID PRN PRN Reason: CONSTIPATION Zolpidem Tartrate (Ambien Tab*) 5 mg PO BEDTIME PRN PRN Reason: INSOMNIA Last Admin: 08/30/17 00:57 Dose: 5 mg Physical Exam: General: awake, alert, no distress, no diaphoresis Head: normocephalic, atraumatic HEENT: no pallor, no icterus, dry mucous membranes Neck: soft, supple, no jvd, no stridor CVS: normal rate, regular, no murmur Resp: bilateral air entry, no rhales, no wheeze, no rhonchi, no acc muscle use Abdomen: soft, nontender, nondistended, bowel sounds present Ext: pulses+, warm, no edema Skin: intact, no breakdown, no dryness Neuro: awake, alert, orientedx3, moving all extremities, no gross focal deficit Labs: Laboratory Results - last 24 hr 08/29/17 08/29/17 08/29/17 10:00 10:00 11:04 WBC RBC Hgb Hct MCV MCH MCHC RDW Plt Count MPV APTT Sodium Potassium Chloride Carbon Dioxide Anion Gap BUN Creatinine Est GFR ( Amer) Est GFR (Non-Af Amer) BUN/Creatinine Ratio Glucose Calcium Troponin I Urine Color Yellow Urine Appearance Cloudy Urine pH 5.0 Ur Specific [place] 1.010 Urine Protein 2+(100 mg/dl) A Urine Ketones Trace A Urine Blood 3+ A Urine Nitrate Negative Urine Bilirubin Negative Urine Urobilinogen Negative Ur Leukocyte Esterase Trace A Urine WBC (Auto) 2+(11-20/hpf) A Urine RBC (Auto) 3+(>10/hpf) A Urine Bacteria Absent Hyaline Casts Present A Ur Random Creatinine 151.09 Ur Random Sodium 51 Urine Glucose 1+(50 mg/dl) A Influenza A (Rapid) Negative Influenza B (Rapid) Negative 08/29/17 08/29/17 08/29/17 11:45 13:45 13:45 WBC RBC Hgb Hct MCV MCH MCHC RDW Plt Count MPV APTT 28.1 Sodium 136 L Potassium 3.6 Chloride 101 Carbon Dioxide 24 Anion Gap 11 BUN 42 H Creatinine 5.59 H Est GFR ( Amer) 15.6 Est GFR (Non-Af Amer) 12.1 BUN/Creatinine Ratio 7.5 L Glucose 121 H Calcium 8.4 L Troponin I 0.57 H* Urine Color Urine Appearance Urine pH Ur Specific [place] Urine Protein Urine Ketones Urine Blood Urine Nitrate Urine Bilirubin Urine Urobilinogen Ur Leukocyte Esterase Urine WBC (Auto) Urine RBC (Auto) Urine Bacteria Hyaline Casts Ur Random Creatinine Ur Random Sodium Urine Glucose Influenza A (Rapid) Influenza B (Rapid) 08/29/17 08/29/17 08/30/17 13:45 20:54 06:50 WBC RBC Hgb 12.9 L Hct 38 L MCV MCH MCHC RDW Plt Count MPV APTT Sodium 138 L Potassium 4.3 Chloride 107 Carbon Dioxide 25 Anion Gap 6 BUN 27 H Creatinine 2.15 H Est GFR ( Amer) 47.0 Est GFR (Non-Af Amer) 36.5 BUN/Creatinine Ratio 12.6 Glucose 89 Calcium 8.9 Troponin I 0.30 H* 0.14 H* Urine Color Urine Appearance Urine pH Ur Specific [place] Urine Protein Urine Ketones Urine Blood Urine Nitrate Urine Bilirubin Urine Urobilinogen Ur Leukocyte Esterase Urine WBC (Auto) Urine RBC (Auto) Urine Bacteria Hyaline Casts Ur Random Creatinine Ur Random Sodium Urine Glucose Influenza A (Rapid) Influenza B (Rapid) 08/30/17 06:50 WBC 9.0 RBC 3.69 L Hgb 11.9 L Hct 35 L MCV 94 MCH 32 H MCHC 35 RDW 13 Plt Count 166 MPV 10.1 APTT Sodium Potassium Chloride Carbon Dioxide Anion Gap BUN Creatinine Est GFR ( Amer) Est GFR (Non-Af Amer) BUN/Creatinine Ratio Glucose Calcium Troponin I Urine Color Urine Appearance Urine pH Ur Specific [place] Urine Protein Urine Ketones Urine Blood Urine Nitrate Urine Bilirubin Urine Urobilinogen Ur Leukocyte Esterase Urine WBC (Auto) Urine RBC (Auto) Urine Bacteria Hyaline Casts Ur Random Creatinine Ur Random Sodium Urine Glucose Influenza A (Rapid) Influenza B (Rapid) Imaging: CT brain 08/28 - no acute pathology CXR 08/29 - no acute process EKG 08/29 - nsr, some lateral t wave flattening mild, good R progression Assessment: 31y M with some hyperactivity disorder (ADHD?), Hypertension; comes to ER for dizziness, falls secondary to dizziness. Also associated blurry vision , malaise, nausea, vomiting, chills+, bilateral arm numbness and leg numbness. Chronic back pain for 20yrs. States no fever/chills. Vomiting x2-3x yesterday. No sick contacts. No abd pain/diarrhea. States he doesnt take HCTZ frequently, last time was last week once. Found to have AYO with elevated WBC, then developed hypotension, poor urine output, fever, upgraded to ICU. -AYO, suspect pre-renal hypovolemia +/- septic ATN? -Hyponatremia/hypochloremia -Leukocytosis, r/o sepsis -Shock, mixed hypovolemic +/- component of sepsis Plan: Neuro- stable. anxious, will give xanax 0.25mg x1 dose. CVS- hypotension, on enrrique 20 but high MAP. will wean and d/c enrrique today. hypovolemia +/- sepsis. Good urine output, euvolemic appearing, dec NS to 100cc/ hour. IV abx cefepime/vanco empiric. ECHO normal LV function. Trop downtrending , suspect elevation from AYO. EKG without no sig changes. No chest pain. Discontinued heparin IV yesterday, low suspicion for ACS. Resp- RA, no distress ID- afebrile, wbc 9. No growth. IV cefepime/vanco empiric (day#2). check vanco level and dose today. 24 more hours of ABx only. COming off pressors. Influenza negative. GI- nause/vom improved, zofran prn. regular diet, encourage PO intake. check fobt. Renal- AYO, great urine output. Likely ATN and now in post ATN phase of diuresis. Dec NS to 100cc/hour. Na improved. If off pressors and stable, will d/ c ding this afternoon. Heme- hg drop but increased again. stable. no bleeding. plt okay. on asa. check fobt. Endo- fingersticks as needed Musculsk- oob to chair, ambulater after ding out. Wounds- none Nutrition- PO regular diet DVT prophylaxis: SCDs GI prophylaxis: PPI po Central Line: no Arterial Line: no Ding Cathetor: yes Disposition: ICU Code Status: full code Total Critical Care time is 35 minutes, excluding procedures/teaching Stewart Rivas MD Acrobatic Dancer (Electronically Signed)
[2017-08-30] MEDS: NS 0.9% 1000 ML* 1,000 ML IV SCH (12:29)
[2017-08-30] MEDS: Vancomycin(*) 1,000 MG in NS 0.9% 250 ML* 250 ML IVPB SCH ×2 (12:30→23:32)
[2017-08-30] MEDS: Cefepime(*) 1 GM in D5W 50 ML BAG* 50 ML IVPB SCH (19:51)
[2017-08-31] MEDS: oxyCODONE TAB* 5 MG TAB PO PRN ×2 (00:54→02:49)
[2017-08-31 06:01] LABS: Hematocrit 34 % (42-52); Hemoglobin 11.6 g/dl (14.0-18.0); Mean Corpuscular HGB Conc 35 g/dl (31-36); Mean Corpuscular Hemoglobin 33 pg (27-31); Mean Corpuscular Volume 95 fL (80-94); Platelet Count 131 10^3/ul (150-450); Red Blood Count 3.55 10^6/ul (4.0-5.4); Red Cell Distribution Width 13 % (10.5-15); White Blood Count 7.3 10^3/ul (3.5-10.8)
[2017-08-31] MEDS: Phenylephrine INJ* 50 MG in NS 0.9% 250 ML* 245 ML IV SCH (06:16)
[2017-08-31] MEDS: NS 0.9% 1000 ML* 1,000 ML IV SCH (08:06)
[2017-08-31 08:21] VITALS: BP 133/75
[2017-08-31] MEDS: Cefepime(*) 1 GM in D5W 50 ML BAG* 50 ML IVPB SCH (08:47)
[2017-08-31] MEDS: Amphetamine MIXED SALT TAB* 10 MG TAB PO SCH (08:47)
[2017-08-31] MEDS: Aspirin EC TAB* 81 MG TAB.EC PO SCH (08:47)
--- NOTE | 2017-09-01 00:09 | DS ---
CC: Shahana Marie Major; Dr. Gomez; Dr. Rivas DISCHARGE SUMMARY: DATE OF ADMISSION: 08/28/17 DATE OF DISCHARGE: 08/31/17, against medical advice. PRIMARY CARE PROVIDER: Shahana Marie Major. CONSULTING HUMAN RESOURCE INTERN: Dr. Gomez. CONSULTING LEAD CYTOGENETIC TECHNOLOGIST: Dr. Rivas. DISCHARGE DIAGNOSES: 1. Septic shock/hypovolemic shock. 2. Acute kidney injury. 3. Elevated troponin, secondary to questionable myocarditis versus demand ischemia. SECONDARY DIAGNOSES: 1. Attention deficit hyperactivity disorder. 2. Hypertension. 3. Hyperlipidemia. MEDICATIONS: 1. Omeprazole 20 mg p.o. daily as needed for nausea and vomiting. 2. Adderall 5 mg p.o. daily. NEW MEDICATIONS: 1. Aspirin 81 mg p.o. daily. 2. Acetaminophen 650 mg p.o. q.4 hours p.r.n. pain or fever. 3. Cefuroxime 500 mg p.o. b.i.d. for 7 more days. HOSPITAL COURSE: Mr. Tariq is a 31-year-old male with a past medical history as stated above who pr esented to the emergency room with complaints of dizziness, falls and loss of consciousness associate d with multiple episodes of nausea and vomiting. For more details about his presentation, I refer lorne jarquin to his history and physical. He was found to have acute kidney injury, but the etiology was unclear. He was admitted to the [facility] care unit as he was also found to have leukocytosis 17,000, creatinine of 5.7, troponin of 0.04 [address]. He had a CT of the brain that showed no acute intracranial pathology, a chest x-ray that showed no evidence for acute disease and a renal ultrasound that was a negative exam. The patient was admitted to the intensive care unit and he was seen by critical care provider, Dr. Ra roberts. His impression was that the patient was a 31-year-old male with ADHD, hypertension that came to the ER for dizziness, fall secondary to dizziness associated with blurry vision, malaise, nausea, vom iting, chills, bilateral arm and leg numbness. No fever or chills. No sick contacts. Found to have AYO with elevated WBC, then developed hypertension, poor urine output and fever. The patient receiv ed IV hydration, empiric antibiotics plus source of infection is unclear. Blood and urine cultures s howed no growth. Influenza was negative. It is possible that the patient had a viral infection. Hi s troponin peaked at 0.57 and he had an echocardiogram that showed ejection fraction of 55% to 60% wi th global left ventricular wall motion and contractility within normal limits. The patient was seen in consultation by Nephrology (Dr. Gomez) and his impression was the patient probably had a severe p rerenal state to explain his renal failure and recommended IV hydration. The patient became afebrile . His blood pressure improved with pressors and IV fluids and his renal function is almost back to n ormal with a creatinine that peaked at 6.6 and is now down to 1.36. I believe further workup is recommended. My plan was to have an infectious disease consultation and also a cardiology consultation as his troponin elevation could represent myocarditis, but the fact th at his echocardiogram shows normal ejection fraction with no wall motion abnormalities is reassuring. This could also be secondary to demand ischemia in the setting of sepsis. Unfortunately, the patient does not wish to stay in the hospital any longer. I explained that his wo rkup is not yet complete and we do not have a complete explanation for all his symptoms and he is at risk for further complications, renal and cardiac including . The patient verbalized understand ing of my explanation, but he states that he can no longer stay in the hospital and he wishes to sign out against medical advice. The patient was strongly encouraged to see his primary care provider as soon as possible as outpatien t to continue his workup. I believe he would benefit of a stress test as he is a smoker. He would p robably benefit of a cardiology consultation as outpatient and he will need his renal function monito red as outpatient. PHYSICAL EXAMINATION: Vital Signs: Temperature 98.2, heart rate is 66, respiratory rate is 20, oxyg en saturation 98% on room air, blood pressure is 133/75. General: The patient is a young gentleman, sitting up in bed, in no acute distress. CVS: Normal S1 and S2. Regular rate and rhythm. Chest: Breath sounds present bilaterally with no added sounds. Extremities: No edema. Neuro: He is aler t, oriented x3. Able to move all 4 extremities. DIET: Regular diet. ACTIVITIES: As tolerated. DISPOSITION: To home against medical advice. STATUS WHILE IN THE HOSPITAL: Inpatient. Please keep in mind that this is a summarized version of this patient's hospital stay. If you need more information, please feel free to call me at [phone] or please obtain the full m edical records. TIME SPENT: Approximately 45 minutes was spent to complete this discharge. [id number]/CPS #: [id number]
== END 2017-08-31 11:50 | disposition left against medical advice (07) | DRG 720 ==
LOC: ED 18:25 → MEDTELE 23:26 → ICU 08-29 05:03 → MED 08-30 15:42
PROVIDERS: ADMIT Pediatrics; ATTEND Internal Medicine
DX: A41.9 Sepsis, unspecified organism (principal); N17.0 Acute kidney failure with tubular necrosis; R57.1 Hypovolemic shock; R65.21 Severe sepsis with septic shock; E74.8 Other specified disorders of carbohydrate metabolism; E87.1 Hypo-osmolality and hyponatremia; M62.82 Rhabdomyolysis; E87.8 Other disorders of electrolyte and fluid balance, not elsewhere classified; F90.9 Attention-deficit hyperactivity disorder, unspecified type; I10 Essential (primary) hypertension; E78.5 Hyperlipidemia, unspecified; F17.210 Nicotine dependence, cigarettes, uncomplicated; K21.9 Gastro-esophageal reflux disease without esophagitis; R34 Anuria and oliguria; I95.9 Hypotension, unspecified; W18.30XA Fall on same level, unspecified, initial encounter; Z91.14 Patient's other noncompliance with medication regimen; Z79.899 Other long term (current) drug therapy; Z84.1 Family history of disorders of kidney and ureter; Z82.49 Family history of ischemic heart disease and other diseases of the circulatory system; Y92.039 Unspecified place in apartment as the place of occurrence of the external cause
CPT/HCPCS: 36415; 70450; 71045; 76775; 80048; 80053; 80061; 80202; 80320; 80329; 81003; 81015; 82550; 82565; 82570; 83605; 83735; 84100; 84300; 84443; 84484; 84520; 85014; 85018; 85025; 85027; 85379; 85610; 85730; 86140; 87040; 87086; 87502; 93005; 93306; 99285; 99406; A9270-GY; G0480; J0692; J1644; J2060; J3370

== ENCOUNTER 2018-02-28 17:54 | Emergency (ER) | payer SELFPAY ==
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
[2018-02-28 23:19] VITALS: BP 135/91
== END 2018-02-28 23:18 | disposition home or self-care (01) ==
LOC: ED 17:54
DX: M25.511 Pain in right shoulder (principal); V47.5XXA Car driver injured in collision with fixed or stationary object in traffic accident, initial encounter; Y92.89 Other specified places as the place of occurrence of the external cause; F90.9 Attention-deficit hyperactivity disorder, unspecified type; F17.210 Nicotine dependence, cigarettes, uncomplicated
CPT/HCPCS: 99282

== ENCOUNTER → 2018-05-16 12:48 | Emergency (ER) | payer SELFPAY ==
[~2018-05-16 12:48] MED LIST: Haloperidol TAB* 5 MG PO ONE; Ibuprofen TAB* 400 MG PO ONE; LORazepam TAB(*) 1 MG PO ONE; Mouth Piece, Nicotine* 1 EACH CARTRIDGE INH PRN; Nicotine Inhaler* 10 MG AMP INH PRN
--- NOTE | 2018-05-16 13:20 | ED ---
Psychiatric Complaint - HPI Summary HPI Summary: This pt is a 32 y/o male presenting [place] [facility] [place] [facility] for a mental health evaluation after pt had a violent outburst today. Pt reports he had a nervous breakdown today because he woke up late for work. He states he "smashed everything" in his house. Per mother, pt has never had an episode this severe in the past. Pt does admit to SI thoughts and plan of shooting himself. 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 Pt notes paranoia, he is scared someone is going to come out of nowhere and shoot him. Pt also reports sleep disturbance, he has not slept in 3 days. He admits to taking Adderall yesterday. Pt smokes marijuana. Pt does take medications but per mother he has not missed or overdosed on them. - History Of Current Complaint Chief Complaint: EDMentalHealth Time Seen by Provider: 05/16/18 13:11 Hx Obtained From: Patient, Family/Materials Buyer - mother Onset/Duration: Sudden Onset Timing: Hours Severity Initially: Severe Severity Currently: Mild Character: Frustrated Aggravating Factor(s): Recent Stress Alleviating Factor(s): Nothing Associated Signs And Symptoms: Positive: Paranoid Behavior, Sleep Disturbance Related History: Positive For: Prior Psychiatric Issues Has Suicidal: Reports: Thoughts, With A Plan Has Homicidal: Denies: Thoughts, With A Plan Recent Stressor(s): woke up late for work today - Allergies/Home Medications Allergies/Adverse Reactions: Allergies Allergy/AdvReac Type Severity Reaction Status Date / Time No Known Allergies Allergy Verified 02/18/16 13:38 Home Medications: Home Medications Amphetamine MIXED SALTS TAB* [Adderall TAB*] 5 mg PO DAILY 05/16/18 [History Confirmed 05/16/18] Buprenorp/Nalox 8-2 MG FILM [Suboxone 8 mg-2 mg Sl Film] 1 film SL TID 05/16/18 [History Confirmed 05/16/18] Gabapentin TAB(NF) [Neurontin 600 mg TAB(NF)] 600 mg PO TID 05/16/18 [History Confirmed 05/16/18] clonazePAM TAB(*) [KlonoPIN TAB(*)] 0.5 mg PO Q8HR PRN 05/16/18 [History Confirmed 05/16/18] PMH/Surg Hx/FS Hx/Imm Hx Endocrine/Hematology History: Denies: Hx Anticoagulant Therapy, Hx Diabetes Cardiovascular History: Denies: Hx Cardiac Arrest, Hx Hypertension, Hx Pacemaker/ICD Respiratory History: Denies: Hx Asthma History: Denies: Hx Renal Disease Musculoskeletal History: Denies: Hx Rheumatoid Arthritis, Hx Osteoporosis Sensory History: Denies: Hx Contacts or Glasses, Hx Hearing Aid Opthamlomology History: Denies: Hx Contacts or Glasses Psychiatric History: Reports: Hx Attention Deficit Hyperactivity Disorder Denies: Hx Panic Disorder - Immunization History Date of Tetanus Vaccine: 2015 Infectious Disease History: No Infectious Disease History: Denies: History Other Infectious Disease, Traveled Outside the [place] in Last 30 Days - Family History Known Family History: Positive: Hypertension - Social History Alcohol Use: None Substance Use Type: Reports: Cocaine, Heroin, Marijuana Substance Use Comment - Amount & Last Used: every day, heroin and cocaine 3 days ago. Smoking Status (MU): Heavy Every Day Tobacco Smoker Type: Cigarettes Amount Used/How Often: 5 CIGS A DAY Review of Systems Constitutional: Other - POS: sleep disturbance Negative: Fever, Chills Negative: Erythema Negative: Sore Throat Negative: Chest Pain Negative: Shortness Of Breath, Cough Negative: Abdominal Pain, Vomiting, Nausea Negative: dysuria, hematuria Negative: Myalgia, Edema Negative: Rash Neurological: Other - NEG: dizziness Psychological: Other - POS: violent, SI thoughts and plan, paranoia Negative: Other - NEG: HI All Other Systems Reviewed And Are Negative: Yes Physical Exam - Summary Physical Exam Summary: Constitutional: Well-developed, Well-nourished, Alert. (-) Distressed Skin: Warm, Dry HENT: Normocephalic; Atraumatic Eyes: Conjunctiva normal Neck: Musculoskeletal ROM normal neck. (-) JVD, (-) Stridor, (-) Tracheal deviation Cardio: Rhythm regular, rate normal, Heart sounds normal; Intact distal pulses; The pedal pulses are 2+ and symmetric. Radial pulses are 2+ and symmetric. (-) Murmur Pulmonary/Chest wall: Effort normal. (-) Respiratory distress, (-) Wheezes, (-) Rales Abd: Soft, (-) Tenderness, (-) Distension, (-) Guarding, (-) Rebound Musculoskeletal: (-) Edema Lymph: (-) Cervical adenopathy Neuro: Alert, Oriented x3 Psych: Mood and affect Normal Triage Information Reviewed: Yes Vital Signs On Initial Exam: Initial Vitals Temp Pulse Resp BP Pulse Ox 97.9 F 70 18 151/95 100 05/16/18 12:51 05/16/18 12:51 05/16/18 12:51 05/16/18 12:51 05/16/18 12:51 Vital Signs Reviewed: Yes Diagnostics - Vital Signs Vital Signs Temp Pulse Resp BP Pulse Ox 05/16/18 12:51 97.9 F 70 18 151/95 100 - Laboratory Result Diagrams: 05/16/18 13:24 05/16/18 13:24 Lab Statement: Any lab studies that have been ordered have been reviewed, and results considered in the medical decision making process. Re-Evaluation - Re-Evaluation First Eval Re-Evaluation Time: 15:21 Comment: Pt is medically cleared. Course/Dx - Course Assessment/Plan: Pt is a 32 y/o male who presents for a mental health evaluation after pt had a violent outburst today. Pt reports he had a nervous breakdown today because he woke up late for work. He states he "smashed everything" in his house. Pt does admit to SI thoughts and plan of shooting himself. Toxicology shows positive amphetamine, benzodiazepines, cocaine, cannabinoids. Pt is medically cleared at 15:21. He is waiting for a mental health evaluation. Pt had a mental health evaluation and his case was reviewed by Dr. Smith, psychiatrist. Dr. Smith cleared the pt for discharge. Pt will be discharged home with dx polysubstance abuse and bipolar disorder. - Differential Dx/Clinical Impression Provider Diagnosis: Bipolar disorder, Polysubstance abuse Discharge - Sign-Out/Discharge Documenting (check all that apply): Patient Departure - discharge home - Discharge Plan Condition: Stable Disposition: HOME Referrals: No Primary Care Phys,NOPCP [Primary Care Provider] - - Attestation Statements Document Initiated by Scribe: Yes Documenting Scribe: Ellie Guevara Provider For Whom Scribe is Documenting (Include Credential): Randy Reyna MD Scribe Attestation: Ellie Edmond, scribed for Randy Reyna MD on 05/16/18 at 1908. Status of Scribe Document: Ready
[2018-05-16 13:30] LABS: ABS Basophils 0.1 10^3/ul (0-0.2); ABS Eosinophils 0.4 10^3/ul (0-0.6); ABS Lymphocytes 2.7 10^3/ul (1.0-4.8); ABS Monocytes 0.8 10^3/ul (0-0.8); ABS Neutrophils 5.2 10^3/ul (1.5-7.7); ABS Nucleated RBC 0 10^3/ul; Eosinophil % 4.1 %; Hematocrit 44 % (42-52); Lymphocyte % 29.3 %; Mean Corpuscular HGB Conc 34 g/dl (31-36); Mean Corpuscular Hemoglobin 32 pg (27-31); Mean Corpuscular Volume 93 fL (80-94); Mean Platelet Volume 9.6 fL (7.4-10.4); Nucleated Red Blood Cells % 0; Platelet Count 216 10^3/ul (150-450); Red Blood Count 4.73 10^6/ul (4.00-5.40); Red Cell Distribution Width 13 % (10.5-15); White Blood Count 9.1 10^3/ul (3.5-10.8)
[2018-05-16 13:31] LABS: Urine Appearance Cloudy; Urine Bilirubin Negative (Negative); Urine Blood Negative (Negative); Urine Color Amber; Urine Glucose Negative (Negative); Urine Ketones Trace (Negative); Urine Nitrite Negative (Negative); Urine Protein Negative (Negative); Urine Specific Gravity 1.028 (1.010-1.030); Urine Urobilinogen Negative (Negative)
[2018-05-16 13:48] LABS: Barbiturates Urine Screen None Detected (None Detect); Benzodiazepine Urine Screen Presumptive Positive (None Detect); Urine Cannabinoids Screen Presumptive Positive (None Detect)
[2018-05-16 13:51] LABS: ALT 22 U/L (7-52); AST 30 U/L (13-39); Albumin 4.8 g/dL (3.2-5.2); Alkaline Phosphatase 55 U/L (34-104); Anion Gap 5 mmol/L (2-11); BUN/Creatinine Ratio 14.9 (8-20); Blood Urea Nitrogen 14 mg/dL (6-24); CO2 Carbon Dioxide 28 mmol/L (22-32); Calcium 9.8 mg/dL (8.6-10.3); Chloride 107 mmol/L (101-111); EGFR Non-African American 94.2 (>60); Globulin 2.4 g/dL (2-4); Glucose 113 mg/dL (70-100); Potassium 4.1 mmol/L (3.5-5.0); Sodium 140 mmol/L (135-145); Total Protein 7.2 g/dL (6.4-8.9)
[2018-05-16 14:11] LABS: Acetaminophen < 15 mcg/mL; Alcohol < 10 mg/dL (<10); Salicylate < 2.50 mg/dL (<30)
[2018-05-16 14:25] LABS: TSH (Thyroid Stimulating Horm) 2.04 mcIU/mL (0.34-5.60)
[2018-05-16 19:29] VITALS: BP 134/62
== END | disposition home or self-care (01) ==
LOC: ED 12:48
DX: F31.9 Bipolar disorder, unspecified (principal); F19.10 Other psychoactive substance abuse, uncomplicated; F17.210 Nicotine dependence, cigarettes, uncomplicated
CPT/HCPCS: 36415; 80053; 80307; 80320; 80329; 81003; 84443; 85025; 99284; A9270-GY; G0480

== ENCOUNTER 2019-07-14 18:48 | Emergency (ER) | payer OTHER ==
--- OUTSIDE RECORDS SUMMARY | 2019-07-14 18:58 | XMS REPORT | Summary of Care ---
:1985 Author Organization [facility] Address [address] [place] [address] Care Team Providers Name Role Phone Giuseppe Chatman MD Primary Care Provider Reason for Visit Reason Comments Panic Attack Encounter Details Date Type Department Care Team Description 05/19/2019 - Emergency EMERGENCY DEPARTMENT Gregory Cooper MD Palpitations (Primary 05/20/2019 [facility] [address] Dx) [address] [place] [id number] [phone] Allergies No Known Allergiesdocumented as of this encounter (statuses as of 05/20/2019) Medications No known medicationsdocumented as of this encounter (statuses as of 05/20/2019) Active Problems Not on filedocumented as of this encounter (statuses as of 05/20/2019) Social History Tobacco Use Types Packs/Day Years Used Date Current Every Day Smoker Comments: 5-10 Alcohol Use Drinks/Week oz/Week Comments Never Alcohol Habits Answer Date Recorded How often do you have a drink containing alcohol? Never 05/19/2019 How many drinks containing alcohol do you have on a typical Not asked day when you are drinking? How often do you have six or more drinks on one occasion? Not asked Sex Assigned at Date Recorded Not on file Job Start Date Occupation Industry Not on file Not on file Not on file Travel History Travel Start Travel End No recent travel history available. documented as of this encounter Last Filed Vital Signs Vital Sign Reading Time Taken Comments Blood Pressure 128/74 05/20/2019 1:26 AM EST Pulse 78 05/20/2019 1:26 AM EST Temperature 37 05/20/2019 1:26 AM EST C (98.6 F) Respiratory Rate 17 05/20/2019 1:26 AM EST Oxygen Saturation 95% 05/20/2019 1:26 AM EST Inhaled Oxygen Concentration - - Weight 68 kg (150 lb) 05/19/2019 11:53 PM EST Height 170.2 cm (5' 7") 05/19/2019 11:53 PM EST Body Mass Index 23.49 05/19/2019 11:53 PM EST documented in this encounter Discharge Instructions AttachmentsThe following attachments cannot be sent through Care Everywhere.Heart Palpitations, Understanding (Dominican)documented in this encounter Plan of Treatment Name Type Priority Associated Diagnoses Date/Time EKG 12 lead ECG STAT 05/20/2019 12:43 AM EST documented as of this encounter Procedures Procedure Name Priority Date/Time Associated Diagnosis Comments XR CHEST FRONTAL STAT 05/20/2019 12:51 AM Results for this AND LATERAL 99182 EST procedure are in the results section. EKG 12-LEAD - CMAXX 05/20/2019 12:43 AM REPORT EST documented in this encounter Results XR Chest Frontal and Lateral (05/20/2019 12:51 AM EST) Specimen Narrative Performed At PROCEDURE INFORMATION: [facility] Exam: XR Chest, 2 Views Exam date and time: 05/20/2019 12:50 AM Age: 33 years old Clinical indication: Other: Palpitations TECHNIQUE: Imaging protocol: XR of the chest Views: 2 views. COMPARISON: No relevant prior studies available. FINDINGS: Lungs: Lungs are hyperinflated. No consolidation. Pleural space: Unremarkable. No pleural effusion. No pneumothorax. Heart/Mediastinum: Unremarkable. No cardiomegaly. Bones/joints: Unremarkable. IMPRESSION: No consolidation. THIS DOCUMENT HAS BEEN ELECTRONICALLY SIGNED BY JUNG MORE MD Procedure Note Interface, Received Via bright box System - 05/20/2019 1:11 AM EST PROCEDURE INFORMATION: Exam: XR Chest, 2 Views Exam date and time: 05/20/2019 12:50 AM Age: 33 years old Clinical indication: Other: Palpitations TECHNIQUE: Imaging protocol: XR of the chest Views: 2 views. COMPARISON: No relevant prior studies available. FINDINGS: Lungs: Lungs are hyperinflated. No consolidation. Pleural space: Unremarkable. No pleural effusion. No pneumothorax. Heart/Mediastinum: Unremarkable. No cardiomegaly. Bones/joints: Unremarkable. IMPRESSION: No consolidation. THIS DOCUMENT HAS BEEN ELECTRONICALLY SIGNED BY JUNG MORE MD Performing Organization Address City/State/Zipcode Phone Number [facility] [address] [place] [address] EKG 12-LEAD - CMAXX REPORT (05/20/2019 12:43 AM EST) Narrative Performed At documented in this encounter Visit Diagnoses Diagnosis Palpitations - Primary documented in this encounter
[2019-07-14 19:14] VITALS: BP 183/106
--- NOTE | 2019-07-14 20:16 | UC ---
Palpitation/Dysrhythmia HP - HPI Summary HPI Summary: 33-year-old male comes in with chief complaint of palpitations. Patient reports that for the last 3 days he's had episodes of palpitations. 2 weeks ago he had an episode of palpitations in [place] and he went to the [facility]. He was evaluated emergency department and released. He was given a prescription for propanolol 10 mg by mouth twice a day when necessary. He did use the propanolol today. 2 days ago he reports having an episode about 30-40 minutes long where he feels like his heart slow and that it's fast and when it's fast he feels pain between his shoulder blades feel short of breath feels numbness in his arms. Had a similar episode yesterday. Today he started to have similar symptoms but the propanolol and the symptoms did not proceed is in the past. 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 Denies any chest pain or palpitations shortness of breath at this time. No pedal edema no calf pain. - History of Current Complaint Chief Complaint: UCGeneralIllness Stated Complaint: ANXIETY, OCCASIONAL PALPATATIONS Time Seen by Provider: 07/14/19 19:56 Pain Intensity: 3 - Allergy/Home Medications Allergies/Adverse Reactions: Allergies Allergy/AdvReac Type Severity Reaction Status Date / Time No Known Allergies Allergy Verified 07/14/19 19:00 Home Medications: Home Medications Omeprazole CAP (NF) [Prilosec CAP* 20 MG] 20 mg PO DAILY PRN 08/28/17 [History Confirmed 07/14/19] Buprenorp/Nalox 8-2 MG FILM [Suboxone 8 mg-2 mg Sl Film] 24 mg SL DAILY [History Confirmed 07/14/19] Gabapentin TAB(NF) [Neurontin 600 mg TAB(NF)] 1,500 mg PO DAILY 05/16/18 [ History Confirmed 07/14/19] clonazePAM TAB(*) [KlonoPIN TAB(*)] 0.5 mg PO Q8HR PRN 05/16/18 [History Confirmed 07/14/19] Acetaminophen [Tylenol] 650 mg PO Q6H PRN 07/14/19 [History Confirmed 07/14/19] Aspirin/Acetaminophen/Caffeine [Excedrin Migraine Caplet] 1 each PO Q12H PRN 07/03 [History Confirmed 07/14/19] Propanolol 10 mg PO DAILY 07/14/19 [History Confirmed 07/14/19] PMH/Surg Hx/FS Hx/Imm Hx Previously Healthy: Yes - substance abuse GI/ History: Gastroesophageal Reflux Psychological History: Anxiety Other History Of: Negative For: Anticoagulant Therapy - Surgical History Surgical History: None - Family History Known Family History: Positive: Hypertension - Social History Alcohol Use: None Substance Use Type: None Substance Use Comment - Amount & Last Used: hx of substance use Smoking Status (MU): Heavy Every Day Tobacco Smoker Type: Cigarettes Amount Used/How Often: 1/2 ppd Household Exposure Type: Cigarettes - Immunization History Most Recent Influenza Vaccination: NEVER GETS Most Recent Tetanus Shot: UNSURE Most Recent Pneumonia Vaccination: never Review of Systems All Other Systems Reviewed And Are Negative: Yes Constitutional: Positive: Other - SEE HPI Skin: Positive: Negative Eyes: Positive: Negative ENT: Positive: Negative Respiratory: Positive: Shortness Of Breath Cardiovascular: Positive: Palpitations, Chest Pain Gastrointestinal: Positive: Negative Motor: Positive: Negative Neurovascular: Positive: Negative Musculoskeletal: Positive: Negative Neurological/Mental Status: Positive: Negative Psychological: Positive: Anxious Is Patient Immunocompromised?: No Physical Exam Triage Information Reviewed: Yes Appearance: Well-Appearing, No Pain Distress, Well-Nourished Vital Signs: Initial Vital Signs Temp 99.3 F 07/14/19 19:04 Pulse 60 07/14/19 19:04 Resp 18 07/14/19 19:04 BP 183/106 07/14/19 19:04 Pulse Ox 97 07/14/19 19:04 Vital Signs Reviewed: Yes Eye Exam: Normal Eyes: Positive: Conjunctiva Clear Neck: Positive: Supple Respiratory: Positive: Lungs clear, Normal breath sounds, No respiratory distress Cardiovascular: Positive: RRR, No Murmur Musculoskeletal: Positive: Strength Intact, ROM Intact, No Edema - NO CALF TENDERNESS Neurological: Positive: Alert, Muscle Tone Normal Psychological: Positive: Other: - Mildly anxious Skin Exam: Normal Diagnostics - EKG Cardiac Rate: Bradycardia - AT 1916 Cardiac Rhythm: Sinus: Normal - 58BPM Ectopy: None EKG Comparison: Other - ST elevation probable normal early repolarization pattern Palpitations Course/Dx - Course Course Of Treatment: I discussed the EKG with the patient and his mother. Patient does have early repolarization. No ectopy here. We discussed going the emergency department for further evaluation and care and the patient does not want to go the emergency department at this time. Plan is we've drawn a CBC, CMP, TSH and magnesium. Patient will continue her propanolol and follow-up either with his primary care doctor, [facility] and/or cardiology for his palpitations. We discussed that if he has any more symptoms especially any palpitations were he feels chest pain shortness of breath or lightheadedness he needs to call the ambulance and go to the emergency department. - Differential Dx/Diagnosis Provider Diagnosis: Palpitations Discharge ED - Sign-Out/Discharge Documenting (check all that apply): Patient Departure All imaging exams completed and their final reports reviewed: No Studies - Discharge Plan Condition: Stable Disposition: HOME Patient Education Materials: Heart Palpitations (ED) Referrals: Dustin Davis MD [Medical Doctor] - [facility] [Outside] [facility]FERRAL [Outside] Additional Instructions: FOLLOW UP WITH [facility] OR YOUR PRIMARY CARE DOCTOR AND CARDIOLOGY. GO TO THE EMERGENCY DEPARTMENT IF WORSE; PALPITATIONS, SHORTNESS OF BREATH, CHEST PAIN, YOU FEEL LIKE YOU ARE GOING TO PASS OUT OR ANY QUESTIONS OR CONCERNS. - Billing Disposition and Condition Condition: STABLE Disposition: Home
[2019-07-15 11:12] LABS: ABS Basophils 0.1 10^3/ul (0-0.2); ABS Eosinophils 0.5 10^3/ul (0-0.6); ABS Lymphocytes 4.1 10^3/ul (1.0-4.8); ABS Monocytes 0.8 10^3/ul (0-0.8); ABS Neutrophils 5.7 10^3/ul (1.5-7.7); Eosinophil % 4.1 %; Hematocrit 43 % (42-52); Hemoglobin 14.8 g/dL (14.0-18.0); Lymphocyte % 37.2 %; Mean Corpuscular HGB Conc 34 g/dL (31-36); Mean Corpuscular Hemoglobin 32 pg (27-31); Mean Corpuscular Volume 93 fL (80-94); Mean Platelet Volume 11.1 fL (7.4-10.4); Nucleated Red Blood Cells % 0.3; Platelet Count 198 10^3/uL (150-450); Red Blood Count 4.67 10^6 /uL (4.18-5.48); Red Cell Distribution Width 13 % (10-15); White Blood Count 11.2 10^3/uL (3.5-10.8)
[2019-07-15 11:20] LABS: Albumin 5.1 g/dL (3.2-5.2); Calcium 10.2 mg/dL (8.6-10.3); Potassium 4.1 mmol/L (3.5-5.0); Total Bilirubin 0.6 mg/dL (0.2-1.0)
[2019-07-15 11:26] LABS: Albumin/Globulin Ratio 2.2 (1-3); EGFR African American 117.6 (>60); EGFR Non-African American 97.2 (>60); Globulin 2.3 g/dL (2-4); Total Protein 7.4 g/dL (6.4-8.9)
[2019-07-15 11:37] LABS: TSH (Thyroid Stimulating Horm) 5.27 mcIU/mL (0.34-5.60)
[2019-07-15 13:42] LABS: BUN/Creatinine Ratio 15.4 (8-20)
== END 2019-07-14 21:00 | disposition home or self-care (01) ==
LOC: UCEAST 18:48
DX: R00.2 Palpitations (principal); K21.9 Gastro-esophageal reflux disease without esophagitis; F41.9 Anxiety disorder, unspecified; F17.210 Nicotine dependence, cigarettes, uncomplicated
CPT/HCPCS: 36415; 80053; 83735; 84443; 85025; 99211; G0463